=== PATIENT | female | born 1960 | race Caucasian/White ===

== ENCOUNTER → 2017-12-01 | Outpatient (CLI) | payer OTHER ==
[~2017-12-01] MED LIST: BENA1TAB10 PO; CHOL2000 PO; CLON0.3T47 PO; ESTR0.5T PO; FEXO180T PO; FURO20TA3 PO; MELO15TA24 PO; METF10002 PO; METF500T4 PO; NAPR220T77 PO; NORE5TAB PO; POTA20TA14 PO; ROSU5TAB PO; SIMV40TA PO; TRIA10PO2 INH
[2017-12-01 11:18] LABS: BASOPHILS # (AUTO) 0.03 x10^3/uL (0-0.1); BASOPHILS % (AUTO) 0 % (0-1); EOSINOPHILS # (AUTO) 0.39 x10^3/uL (0-0.4); EOSINOPHILS % (AUTO) 3 % (1-7); LYMPHOCYTES # (AUTO) 1.77 x10^3/uL (1-3.4); LYMPHOCYTES % (AUTO) 14 % (22-44); MD NO; MEAN CORPUSCULAR HEMOGLOBIN 29.9 pg (27.0-34.8); MEAN CORPUSCULAR HGB CONC 33.6 g/dL (32.4-35.8); MEAN CORPUSCULAR VOLUME 89.2 fL (80-100); MEAN PLATELET VOLUME 8.7 fL (7.4-10.4); MONOCYTES # (AUTO) 0.34 x10^3/uL (0.2-0.8); MONOCYTES % (AUTO) 3 % (2-9); NEUTROPHILS # (AUTO) 9.89 x10^3/uL (1.8-6.8); NEUTROPHILS % (AUTO) 80 % (42-75); PLATELET COUNT 303 x10^3/uL (130-400); RED CELL DISTRIBUTION WIDTH 14.1 % (9.6-15.2)
[2017-12-01 11:32] LABS: ALANINE AMINOTRANSFERASE 15 U/L (12-78); ALBUMIN 3.8 g/dL (3.4-5.0); ANION GAP 11 mmol/L (5-15); CALCIUM 8.6 mg/dL (8.5-10.1); CHLORIDE 104 mmol/L (98-107); CREATININE 0.94 mg/dL (0.55-1.02)
[2017-12-01 11:34] LABS: ALKALINE PHOSPHATASE 65 U/L (45-117); BILIRUBIN,TOTAL 0.7 mg/dL (0.2-1.0); TOTAL PROTEIN 7.9 g/dL (6.4-8.2)
== END | disposition home or self-care (01) ==
LOC: STAR 10:10
PROVIDERS: ATTEND Obstetrics & Gynecology Female Pelvic Medicine and Reconstructive Surgery
DX: Z01.818 Encounter for other preprocedural examination (principal); D25.9 Leiomyoma of uterus, unspecified; N95.0 Postmenopausal bleeding; N85.2 Hypertrophy of uterus
CPT/HCPCS: 36415; 71046; 80053; 85025; 93005

== ENCOUNTER 2017-12-08 11:54 | Day surgery (SDC) | payer OTHER ==
[2017-12-01 15:16] VITALS: BP 158/104
[~2017-12-08] VITALS: Ht 170.2 cm; Wt 121.8 kg
[~2017-12-08 11:54] MED LIST changes: +BUPIVACAINE/PF 0.25% ONE; +EPHEDRINE 50 MG/ML, 1ML ONE; +EPINEPHRINE 1 MG/ML, 1ML ONE; +FLUORESCEIN SODIUM 500 MG/5 ML ONE; +LABETALOL 5MG/ML 40ML VIAL ONE; +METOCLOPRAMIDE 5 MG/ML, 2ML ONE; +ROCURONIUM 10 MG/ML,10ML ONE
[2017-12-08] MEDS ORDERED: LACTATED RINGERS 1,000 ML IV SCH ×2 (12:23→16:27)
[2017-12-08] MEDS ORDERED: FEXO60TA24 PO (12:26)
[2017-12-08] MEDS ORDERED: FENTANYL PF 100 MCG/2ML ONE (12:58)
[2017-12-08] MEDS ORDERED: MIDAZOLAM 1 MG/ML, 2ML ONE (12:58)
[2017-12-08] MEDS ORDERED: SCOPOLAMINE PATCH, 1.5MG PATCH.TD72 TD ONE (13:00)
[2017-12-08] MEDS ORDERED: FAMOTIDINE 20 MG TABLET PO ONE (13:00)
[2017-12-08] MEDS ORDERED: ACETAMINOPHEN 500 MG TABLET PO ONE (13:00)
[2017-12-08] MEDS ORDERED: GABAPENTIN 300 MG CAPSULE PO ONE (13:00)
[2017-12-08] MEDS ORDERED: LIDOCAINE GEL 2%, 5ML ONE (13:26)
[2017-12-08] MEDS ORDERED: NEOSTIGMINE 1 MG/ML, 10ML ONE (13:27)
[2017-12-08] MEDS ORDERED: SUCCINYLCHOLINE 20 MG/ML, 10ML ONE (13:27)
[2017-12-08] MEDS ORDERED: PROPOFOL 10 MG/ML, 20ML ONE (13:27)
[2017-12-08] MEDS ORDERED: KETOROLAC 30 MG/1 ML ONE (13:27)
[2017-12-08] MEDS ORDERED: ONDANSETRON 2MG/ML, 2ML ONE (13:27)
[2017-12-08] MEDS ORDERED: DEXAMETHASONE 4 MG/ML, 1ML ONE (13:27)
[2017-12-08] MEDS ORDERED: LIDOCAINE-MPF 2% ,5ML ONE (13:27)
[2017-12-08] MEDS ORDERED: CEFAZOLIN 1,000 MG ONE (13:27)
[2017-12-08] MEDS ORDERED: GLYCOPYRROLATE 0.2MG/1ML, 5ML ONE (13:27)
[2017-12-08] MEDS ORDERED: MEPERIDINE/PF 25MG/0.5ML IVPush PRN (15:30)
[2017-12-08] MEDS ORDERED: morphine SULFATE 10 MG/ML, 1ML IV PRN (15:30)
[2017-12-08] MEDS ORDERED: ONDANSETRON ODT 4 MG PO PRN ×3 (15:30→15:41)
[2017-12-08] MEDS ORDERED: OXYcodone 5 MG/5 ML ORAL.SOL UDC PO PRN (15:30)
[2017-12-08] MEDS ORDERED: ALBUTEROL/IPRATROPIUM 2.5MG/0.5MG, 3 ML NPPB PRN (15:30)
[2017-12-08] MEDS ORDERED: LABETALOL 5MG/ML, 20ML IV PRN (15:30)
[2017-12-08] MEDS ORDERED: MIDAZOLAM 1 MG/ML, 2ML IV PRN (15:30)
[2017-12-08] MEDS ORDERED: FENTANYL PF 100 MCG/2ML IV PRN (15:30)
[2017-12-08] MEDS ORDERED: PROMETHAZINE 25 MG/ML, 1ML IV PRN (15:30)
[2017-12-08] MEDS ORDERED: PROMETHAZINE 12.5 MG SUPP PR PRN (15:30)
[2017-12-08] MEDS ORDERED: DIAZEPAM 5 MG/ML, 2ML IVPush PRN (15:30)
[2017-12-08] MEDS ORDERED: hydrALAzine 20 MG/ML, 1ML IV PRN (15:30)
[2017-12-08] MEDS ORDERED: LORazepam 2 MG/ML, 1ML IVPush PRN (15:30)
[2017-12-08] MEDS ORDERED: HYDROcodone/APAP 5/325 TABLET PO PRN (16:30)
[2017-12-08] MEDS ORDERED: PROMETHAZINE 25 MG SUPP PR ONE (16:30)
[2017-12-08] MEDS ORDERED: IBUPROFEN 600 MG TABLET PO PRN (16:30)
[2017-12-08] MEDS ORDERED: ONDANSETRON 2MG/ML, 2ML IVPush PRN (16:30)
[2017-12-08] MEDS ORDERED: OXYcodone 5 MG/5 ML ORAL.SOL UDC ONE (16:53)
[2017-12-08] MEDS ORDERED: LABETALOL 5MG/ML, 20ML ONE (17:41)
== END 2017-12-08 20:50 ==
LOC: OUT 11:54
PROVIDERS: ATTEND Obstetrics & Gynecology Female Pelvic Medicine and Reconstructive Surgery
DX: N93.8 Other specified abnormal uterine and vaginal bleeding (principal); D25.0 Submucous leiomyoma of uterus; E11.9 Type 2 diabetes mellitus without complications; I10 Essential (primary) hypertension; E78.5 Hyperlipidemia, unspecified; E66.01 Morbid (severe) obesity due to excess calories; Z68.41 Body mass index [BMI] 40.0-44.9, adult; Z88.5 Allergy status to narcotic agent; Z79.84 Long term (current) use of oral hypoglycemic drugs; Z79.890 Hormone replacement therapy; Z87.39 Personal history of other diseases of the musculoskeletal system and connective tissue; Z90.49 Acquired absence of other specified parts of digestive tract
CPT/HCPCS: 58571; 82962; 88307; J0171; J0330; J0690; J1100; J1885; J2250; J2405; J2704; J2710; J2765; J3010; J3490; J7120

== ENCOUNTER → 2019-03-26 | Outpatient (CLI) | payer OTHER ==
[~2019-03-26] MED LIST changes: -BUPIVACAINE/PF 0.25% ONE; -EPHEDRINE 50 MG/ML, 1ML ONE; -EPINEPHRINE 1 MG/ML, 1ML ONE; +FEXO60TA24 PO; -FLUORESCEIN SODIUM 500 MG/5 ML ONE; -LABETALOL 5MG/ML 40ML VIAL ONE; -METF10002 PO; +METF10007 PO; +METF500T17 PO; -METF500T4 PO; -METOCLOPRAMIDE 5 MG/ML, 2ML ONE; -ROCURONIUM 10 MG/ML,10ML ONE
== END | disposition home or self-care (01) ==
LOC: CFH 08:48
PROVIDERS: ATTEND Internal Medicine Cardiovascular Disease
DX: I35.8 Other nonrheumatic aortic valve disorders (principal); I10 Essential (primary) hypertension; E78.5 Hyperlipidemia, unspecified; Z72.0 Tobacco use
CPT/HCPCS: 93306

== ENCOUNTER 2019-05-03 08:47 | Outpatient (CLI) | payer OTHER | END 2019-05-03 23:59 | disposition home or self-care (01) | LOC: CFH 08:47 | PROVIDERS: ATTEND Internal Medicine Cardiovascular Disease | DX: I25.89 Other forms of chronic ischemic heart disease (principal) | CPT/HCPCS: 78452; 93017; A9502 ==

== ENCOUNTER 2020-03-31 12:31 | Outpatient (CLI) | payer OTHER ==
[~2020-03-31 12:31] MED LIST changes: +ASPI81TA45 PO; +BIOT25005 PO; +CARV6.252 PO; +CHOL200024 PO; +CLON0.3T PO; -CLON0.3T47 PO; +CYAN25009 PO; -ESTR0.5T PO; +ESTR0.5T TD; +ESTR1PAT25 TP; +LEVA15HF4 INH; +LIDOCAINE 1%, 10ML ONE; +NITR0.4T41 SL
== END 2020-03-31 23:59 | disposition home or self-care (01) ==
LOC: RAD 12:31
PROVIDERS: ATTEND Nurse Practitioner
DX: E04.1 Nontoxic single thyroid nodule (principal); Z88.5 Allergy status to narcotic agent; Z91.048 Other nonmedicinal substance allergy status; Z79.82 Long term (current) use of aspirin; Z79.899 Other long term (current) drug therapy; Z82.49 Family history of ischemic heart disease and other diseases of the circulatory system
CPT/HCPCS: 10005; 88173; J3490; 76942

== ENCOUNTER 2020-05-25 08:39 | Outpatient (CLI) | payer OTHER ==
[~2020-05-25 08:39] MED LIST changes: -LIDOCAINE 1%, 10ML ONE
[2020-05-25 10:17] LABS: ALBUMIN 3.6 g/dL (3.4-5.0); ANION GAP 6 mmol/L (5-15); CALCIUM 8.6 mg/dL (8.5-10.1); CHLORIDE 105 mmol/L (98-107)
[2020-05-25 11:44] LABS: ALANINE AMINOTRANSFERASE 24 U/L (12-78); BILIRUBIN,TOTAL 0.6 mg/dL (0.2-1.0); CREATININE 0.93 mg/dL (0.55-1.02)
[2020-05-25 12:17] LABS: ALKALINE PHOSPHATASE 75 U/L (45-117); TOTAL PROTEIN 7.4 g/dL (6.4-8.2)
== END 2020-05-25 23:59 | disposition home or self-care (01) ==
LOC: STAR 08:39
PROVIDERS: ATTEND Surgery
DX: Z01.818 Encounter for other preprocedural examination (principal); Z20.828 Contact with and (suspected) exposure to other viral communicable diseases
CPT/HCPCS: 36415; 80053; 84432; 86800; 87635; 93005

== ENCOUNTER 2020-05-29 11:10 | Day surgery (SDC) | payer OTHER ==
[~2020-05-29] VITALS: Ht 170.2 cm; Wt 127.0 kg
[2020-05-29] MEDS ORDERED: LACTATED RINGERS 1,000 ML IV SCH (11:31)
[2020-05-29] MEDS ORDERED: CHLORHEXIDINE 15 ML UDC MM STA (11:31)
[2020-05-29] MEDS ORDERED: CHLORHEXIDINE 15 ML UDC ONE (11:37)
[2020-05-29] MEDS ORDERED: FENTANYL PF 250 MCG/5ML ONE (11:42)
[2020-05-29] MEDS ORDERED: MIDAZOLAM 1 MG/ML, 2ML ONE (11:42)
[2020-05-29] MEDS ORDERED: PROPOFOL 50 ML ONE (11:42)
[2020-05-29] MEDS ORDERED: SUCCINYLCHOLINE 20 MG/ML, 10ML ONE (11:49)
[2020-05-29] MEDS ORDERED: PROPOFOL 10 MG/ML, 20ML ONE (11:49)
[2020-05-29] MEDS ORDERED: ROCURONIUM 10MG/ML,5ML ONE (11:49)
[2020-05-29 11:50] VITALS: BP 166/90
[2020-05-29] MEDS ORDERED: ONDANSETRON 2MG/ML, 2ML IVPush PRN (12:00)
[2020-05-29] MEDS ORDERED: DIAZEPAM 5 MG TABLET PO ONE (12:00)
[2020-05-29] MEDS ORDERED: DIPHENHYDRAMINE 50 MG/ML, 1ML IVPush PRN (12:00)
[2020-05-29] MEDS ORDERED: MEPERIDINE/PF 25MG/0.5ML IVPush PRN (12:00)
[2020-05-29] MEDS ORDERED: ONDANSETRON ODT 8 MG PO ONE (12:00)
[2020-05-29] MEDS ORDERED: DIAZEPAM 5 MG/ML, 2ML IVPush PRN (12:00)
[2020-05-29] MEDS ORDERED: HYDROmorphone 1 MG/ML, 1ML INJ IVPush PRN (12:00)
[2020-05-29] MEDS ORDERED: EPHEDRINE 50 MG/ML, 1ML IM PRN (12:00)
[2020-05-29] MEDS ORDERED: PROMETHAZINE 25 MG/ML, 1ML IVPush PRN (12:00)
[2020-05-29] MEDS ORDERED: OXYcodone 5 MG/5 ML ORAL.SOL UDC PO PRN (12:00)
[2020-05-29] MEDS ORDERED: ACETAMINOPHEN 500 MG TABLET PO ONE (12:00)
[2020-05-29] MEDS ORDERED: EPHEDRINE 50 MG/ML, 1ML IVPush PRN (12:00)
[2020-05-29] MEDS ORDERED: LABETALOL 5MG/ML, 20ML IV PRN (12:00)
[2020-05-29] MEDS: FENTANYL PF 100 MCG/2ML IV PRN ×4 (13:55→14:15)
[2020-05-29] MEDS ORDERED: FENTANYL PF 100 MCG/2ML ONE (13:58)
[2020-05-29] MEDS ORDERED: hydrALAzine 20 MG/ML, 1ML ONE (13:58)
[2020-05-29] MEDS ORDERED: OXYcodone 5 MG/5 ML ORAL.SOL UDC ONE (13:58)
[2020-05-29] MEDS ORDERED: LABETALOL 5MG/ML, 20ML ONE (13:58)
[2020-05-29] MEDS ORDERED: hydrALAzine 20 MG/ML, 1ML IV ONE (14:30)
== END 2020-05-29 16:19 | disposition home or self-care (01) ==
LOC: OUT 11:10
PROVIDERS: ATTEND Surgery
DX: E04.2 Nontoxic multinodular goiter (principal); D34 Benign neoplasm of thyroid gland; E11.9 Type 2 diabetes mellitus without complications; I10 Essential (primary) hypertension; J45.909 Unspecified asthma, uncomplicated; K58.9 Irritable bowel syndrome, unspecified; E78.00 Pure hypercholesterolemia, unspecified; E66.01 Morbid (severe) obesity due to excess calories; Z68.41 Body mass index [BMI] 40.0-44.9, adult; Z79.82 Long term (current) use of aspirin; Z79.84 Long term (current) use of oral hypoglycemic drugs; Z79.899 Other long term (current) drug therapy; Z88.5 Allergy status to narcotic agent; Z88.8 Allergy status to other drugs, medicaments and biological substances; Z90.49 Acquired absence of other specified parts of digestive tract; Z90.710 Acquired absence of both cervix and uterus; Z98.890 Other specified postprocedural states; Z82.61 Family history of arthritis; Z83.3 Family history of diabetes mellitus; Z82.49 Family history of ischemic heart disease and other diseases of the circulatory system; Z80.1 Family history of malignant neoplasm of trachea, bronchus and lung
CPT/HCPCS: 60271; 82962; 88307; 88311; C1760; J0330; J0360; J2250; J2704; J3010; J7120; Q0162